=== PATIENT | female | born 1935 | race Caucasian/White ===

== ENCOUNTER 2018-04-08 07:27 | Observation (INO) | payer OTHER ==
[2018-04-08] MEDS ORDERED: FAMOTIDINE 20 MG TAB PO ONE (07:28)
[2018-04-08] MEDS ORDERED: DIAZEPAM 5 MG TAB PO ONE (07:28)
[2018-04-08] MEDS ORDERED: diphenhydrAMINE 25 MG CAP PO ONE (07:28)
[2018-04-08] MEDS ORDERED: ASPIRIN EC 325 MG TAB PO ONE (07:28)
[2018-04-08] MEDS ORDERED: NS 1,000 ML IV ONE (07:28)
[2018-04-08] MEDS ORDERED: FAMOTIDINE 20 MG/NACL 50 ML IV ONE (07:29)
[2018-04-08] MEDS ORDERED: methylPREDNISolone SOD SUCC 125 MG/2 ML VIAL IVP ONE (07:29)
[2018-04-08] MEDS ORDERED: fentaNYL 100 MCG/2 ML INJ ONE ×2 (08:15→09:42)
[2018-04-08] MEDS ORDERED: IOPAMIDOL (ISOVUE-370) 150 ML BTL IV ONE (08:15)
[2018-04-08] MEDS ORDERED: MIDAZOLAM 2 MG/2 ML VIAL ONE ×2 (08:15→09:42)
[2018-04-08] MEDS ORDERED: LIDOCAINE 1% 300 MG/30 ML SDV ONE (08:15)
[2018-04-08 08:18] LABS: PLATELET COUNT 247 10^3/uL (150-400)
[2018-04-08 08:33] LABS: INR 0.91 (0.83-1.16); PROTIME(PATIENT) 12.5 SEC (12.0-15.0)
[2018-04-08] MEDS ORDERED: CLOPIDOGREL BISULFATE 75 MG TAB ONE (08:33)
--- NOTE | 2018-04-08 08:35 | PDHPUP ---
History & Physical Update H&P update statement: This history and physical update is based on an assessment of the patient which was completed after admission or registration (within 24 hours), but prior to the surgery/procedure. H&P update: H&P reviewed & patient examined, no change in patient's condition since H&P completed
--- NOTE | 2018-04-08 08:36 | PDPROPOC ---
Sedation Plan of Care Sedation Plan of Care: mental status noted, patient educated of risks, benefits , alternatives, patient can tolerate sedation ASA Classification: ASA 2 Planned drugs: fentanyl, midazolam Mallampati Score: Class 3 Mallampati Reference Image: Patient passed 3-3-2 rule?: Yes
[2018-04-08] MEDS ORDERED: CLOPIDOGREL BISULFATE 75 MG TAB PO ONE (08:45)
[2018-04-08] MEDS ORDERED: BIVALIRUDIN 250 MG/5 ML VIAL IV ONE (09:18)
[2018-04-08] MEDS ORDERED: EPINEPHrine 1 MG/10 ML SYR IVP ONE (09:28)
[2018-04-08] MEDS ORDERED: ATROPINE SULFATE 1 MG/10 ML SYR ONE (09:28)
--- NOTE | 2018-04-08 09:54 | CPEKG ---
Test Reason : OPEN Blood Pressure : / mmHG Vent. Rate : 074 BPM Atrial Rate : 075 BPM P-R Int : 165 ms QRS Dur : 097 ms QT Int : 381 ms P-R-T Axes : 059 050 045 degrees QTc Int : 423 ms Sinus rhythm Confirmed by Anoop Oden ([id number]) on 04/08/2018 9:54:42 AM Referred By: Confirmed By:Anoop Oden
[2018-04-08] MEDS ORDERED: OXYCODONE/APAP 5/325 TAB PO PRN (09:59)
[2018-04-08] MEDS ORDERED: LORazepam 2 MG/ML INJ IVP PRN (09:59)
[2018-04-08] MEDS ORDERED: NITROGLYCERIN 0.4 MG BTL SL PRN (09:59)
[2018-04-08] MEDS ORDERED: HYDROCODONE/APAP 5/325 TAB PO PRN (09:59)
[2018-04-08] MEDS ORDERED: ONDANSETRON 4 MG/2 ML VIAL IVP PRN (09:59)
[2018-04-08] MEDS ORDERED: TEMAZEPAM 15 MG CAP PO PRN ×2 (09:59→12:11)
[2018-04-08] MEDS ORDERED: ATROPINE SULFATE 1 MG/10 ML SYR IVP PRN (09:59)
[2018-04-08] MEDS ORDERED: traMADol 50 MG TAB PO PRN (10:01)
--- NOTE | 2018-04-08 10:28 | ECHO ---
[email or web address] [address] [address] Main: [phone] Fax: Transthoracic Echocardiogram Name: SKYE NIETO MR#: [id number] Study Date: 04/08/2018 Study Time: 08:15 AM Date of : 1935 Age: 82 year(s) Height: 152.4 cm (60 in.) Weight: 80.74 kg (178 lb.) BSA: 1.78 m2 Gender: Female Examination: Echo Indication: Eval aortic valve/LV function Image Quality: Adequate Contrast: Requested by: Donnie Rae BP: 167 mmHg/96 mmHg Heart Rate: Rhythm: Indication: Eval aortic valve/LV function Procedure Staff Fundraising Officer: Elina Wu RDCS Reading Physician: Donnie Rae MD Requesting Provider: Conclusions: Mild concentric LV hypertrophy. The ejection fraction is estimated to be 60-65 %. AV max velocity was 3.91m/s. AV max PG is 58mmHG. AV mean PG is 40mmHG.. The pulmonary artery pressure is mildly increased. RVSP is 50mmHG. . Measurements: Chambers Valvular Assessment AV/MV Valvular Assessment TV/PV Normal Normal Normal Name Value Range Name Value Range Name Value Range IVSd (2D): 1.0 cm (0.6 cm-1.1 AV Vmax: 3.91 m/s (1 m/s-1.7 TR Vmax: 3.35 mm/s ( - ) cm) m/s) TR PGmax: 45 mmHg ( - ) LVDd (2D): 4.7 cm (3.9 cm-5.3 AV meanP mmHg ( - ) syst. PAP: 50 mmHg ( - ) cm) SANDY (VTI): 0.7 cm ( - ) LVDs (2D): 2.9 cm (2.1 cm-4 MV E Vmax: 1.03 m/s ( - ) cm) MV A Vmax: 1.02 m/s ( - ) LVPWd (2D): 0.8 cm ( - ) MV E/A: 1.01 ( - ) LVOTd 1.9 cm 1.9 cm mm LVEF (BP): 71 % (>=55 %) EF Range: 60-65 % Continued Measurements: Chambers Valvular Assessment AV/MV Valvular Assessment TV/PV Name Value Name Value Name Value LADs: 4.3 cm MV E' Septal: 0.06 m/s CVP (est.): 5 mmHg LADs Lon.0 cm MV E/E' Septal: 17.30 LA Area: 23.5 cm2 MV E/E' Lateral: 13.60 Patient: SKYE NIETO Study Date: 04/08/2018 Page 1 of 2 08:15 AM Findings: Left Ventricle: Normal size left ventricle. Mild concentric LV hypertrophy. Normal global systolic LV function. The ejection fraction is estimated to be 60-65 %. No regional wall motion abnormality. Diastolic dysfunction is present. . Right Ventricle: Normal size right ventricle. Left Atrium: The left atrium is mildly dilated. Right Atrium: The right atrium is normal in size. Mitral Valve: Mild mitral annular calcification. Mild mitral valve regurgitation is present. Aortic Valve: Severe aortic valve calcification is present. AV max velocity was 3.91m/s. AV max PG is 58mmHG. AV mean PG is 40mmHG.. Tricuspid Valve: The tricuspid valve is normal in appearance and function. Mild tricuspid regurgitation is present. The pulmonary artery pressure is mildly increased. RVSP is 50mmHG. . Pulmonic Valve: The pulmonic valve is normal in appearance and function. Aorta: The aorta is normal. Pericardium: No pericardial effusion. There is pericardial fat. (No Signature Object) Patient: SKYE NIETO Study Date: 04/08/2018 Page 2 of 2 08:15 AM [id number]
--- NOTE | 2018-04-08 11:20 | CPIP ---
DATE OF PROCEDURE: 04/08/2018 INDICATION FOR PROCEDURE: Severe symptomatic aortic stenosis. PROCEDURE: 1. Left groin sheathogram. 2. 7-Albanian sheath in the left common femoral vein. 3. Bilateral coronary angiography. 4. Left internal mammary artery angiography. 5. Free radial artery angiography to diagonal artery. 6. Percutaneous coronary intervention of distal RCA and ostial RPDA utilizing drug-eluting stent. 7. Right heart catheterization with Pender-Naomie catheter. 8. Abdominal aortogram. HISTORY: Briefly, 82-year-old female with history of prior bypass surgery with severe symptomatic ao rtic stenosis, seen by CT surgery and deemed to be a suitable candidate for transfemoral TAVR. DESCRIPTION OF PROCEDURE: After informed consent, the patient was brought to [facility] where the left groi n was prepped and draped in sterile fashion. Using lidocaine, a short 6-Albanian sheath in the left co mmon femoral artery verified angiographically. 7-Albanian sheath in the left common femoral vein. A S wan-Naomie catheter was advanced. Wedge pressure mean of 17, A-wave of 20, V-wave of 21. PA pressure systolic 55, diastolic 19, mean of 33. RV pressure systolic 55, diastolic 6, end of 11. RA pressure mean of 14 , A-wave 9, V-wave 29. Cardiac output was measured to be 4.1 by Logan with an index of 2.3 . Pender-Naomie catheter was then removed. A JL4 catheter was advanced to the left coronary artery. Images of the left coronary artery revealed normal left main with mild plaque disease. There was a high OM1 coming off, which was healthy and f ree of disease. There was a circumflex artery with mild 20% to 30% disease. There was a stent in th e OM2, which was widely patent. The circumflex terminated into an AV groove circumflex, which was he althy and free of disease. The LAD was a diffusely diseased vessel, which was completely occluded at its mid distal portion. Before its occlusion, there were small diagonal arteries coming off, which had diffuse disease. After these images were obtained, the JL4 catheter was removed. The JR4 cathet er was advanced to the right coronary artery. Right coronary artery imaging showed ostial 30% diseas e with good reflux. Proximal RCA had an additional area of 30% disease. Mid RCA had a distal 30% di sease. Distal RCA had focal tubular area of approximately 70%. The RPLS appeared to be widely paten t. The RPDA had a tubular stenosis of approximately 90%. Distally, these vessels appeared to be pat ent. After these were images obtained, the JR4 catheter was removed, pulled back, and placed into the [facility], which was a free radial graft anastomosed to a diagonal artery. This was widely patent. Di stal diagonal artery was widely patent as well. After the images were obtained, the JR4 catheter was placed in the left artery, switched o ut for a MOREAU catheter. Angiography of the left internal mammary showed widely patent MOREAU anastomos ing to an LAD, which was healthy at its anastomotic point and distally had some 40% to 50% disease at the extreme distal apical segment. At this time, the MOREAU catheter was removed. The pigtail catheter was advanced to the distal ascendi ng aorta. Abdominal aortogram was obtained, which showed what appeared to be an abdominal aortic ane urysm. There were widely patent common, external, internal iliac arteries. The right RAIL SWITCHMAN appeared t o be widely patent. After these images obtained, the pigtail catheter was removed over the 0.035 wire. INTERVENTIONAL REPORT: At this time, the patient had been administered 600 Plavix p.o., started on a n Angiomax bolus and drip. A JR4 6-Albanian guide catheter with side holes was advanced the right felipe nary artery. A Choice PT wire was placed down the RPDA. Predilatation commenced across the RPDA les ion with a Euphora 2.0 x 12 balloon at 14 atmospheres. After this was performed, we then proceeded w [facility] angiography, which showed that this lesion had responded to the ballooning, but it still had some waste. We decided to proceed with a 2.5 x 12 Compliant balloon and inflated this to 14 atmospheres across the area. After it was deflated, the balloon was removed. We then proceeded with stenting th is vessel with a Synergy 2.5 x 12 mm drug-eluting stent. This was deployed successfully at 16 atmosp heres. After deployment, angiographic images were obtained, which showed excellent patency of both t he RPD and RPLS with no pinching of the RPLS. We then proceeded to proceed with primary stenting of the distal RCA lesion with a 3.0 x 20 mm Synergy drug-eluting stent. This was deployed at 16 atmosph eres. After this was performed, angiographic images were obtained, which showed excellent patency of the stented regions with no evidence of dissection or perforation. Wire was pulled back. Guide cat heter was removed. Left groin was sutured in place. Patient tolerated the procedure well with no co mplications. IMPRESSION: 1. Successful percutaneous coronary intervention of high-grade right posterior descending artery and distal right coronary artery lesions with 2 Synergy drug-eluting stents. 2. Severe disease of the left coronary artery system with patent stents in the obtuse marginal-2 art thiago. 3. Patent radial graft to the diagonal artery. 4. Patent left internal mammary artery to left anterior descending. 5. Abdominal aortic aneurysm visualized by abdominal angiogram with widely patent common, external, internal and common femoral arteries bilaterally. 6. Moderate pulmonary hypertension with low-normal cardiac output. PLAN: The patient will have CT of the chest, abdomen, and pelvis, as well as carotid ultrasound. Di scharge the patient in 24 hours. Plan for TAVR in the next week or so. /[id number]/MODL
[2018-04-08] MEDS ORDERED: hydrALAZINE 20 MG/ML VIAL ONE (12:02)
[2018-04-08] MEDS ORDERED: hydrALAZINE 20 MG/ML VIAL IVP PRN (12:07)
--- NOTE | 2018-04-08 23:05 | CPEKG ---
Test Reason : OPEN Blood Pressure : / mmHG Vent. Rate : 068 BPM Atrial Rate : 069 BPM P-R Int : 186 ms QRS Dur : 108 ms QT Int : 415 ms P-R-T Axes : 066 060 072 degrees QTc Int : 442 ms Sinus rhythm Left ventricular hypertrophy Confirmed by Anoop Oden ([id number]) on 04/08/2018 11:04:34 PM Referred By: Confirmed By:Anoop Oden
[2018-04-09 04:33] LABS: PLATELET COUNT 236 10^3/uL (150-400)
[2018-04-09] MEDS ORDERED: LEVOTHYROXINE 75 MCG TAB PO SCH (06:00)
[2018-04-09] MEDS ORDERED: methylPREDNISolone SOD SUCC 125 MG/2 ML VIAL IVP ONE (07:07)
[2018-04-09] MEDS ORDERED: FAMOTIDINE 20 MG/NACL 50 ML IV ONE (07:07)
--- NOTE | 2018-04-09 07:10 | PDCARPN ---
Cardiology Progress Note Chief Complaint: SOB Assessment/Plan: Assessment: CAD Plan: 04/09/18 07:07 s/p RCA PCI Plan for CTAs this AM d/c home after f/u next week TAVR soon thereafter plavix to be started as well Subjective: doing well Reviewed/Discussed With: multidisciplinary team Time Spent with Patient: greater than 25 minutes Time Spent with Patient: Greater than 25 minutes spent on this patients care, greater than 50% of time spent counseling, educating, and coordinating care regarding the above mentioned plan. Objective: Vital Signs (8 Hrs) Temp Pulse Resp BP Pulse Ox 04/09/18 04:00 36.5 C 66 19 145/69 H 95 04/08/18 23:26 36.4 C 64 20 154/80 H 93 Intake/Output (24 Hrs) 04/08/18 04/09/18 04/10/18 05:59 05:59 05:59 Intake Total 750 Balance 750 Intake: Oral (ml) 750 Other: Weight 80.739 kg Number of Voids Toilet 3 Result Diagrams: 04/09/18 04:10 04/09/18 04:10 - Physical Exam Constitutional: healthy appearing Eyes: PERRL Ears, Nose, Mouth, Throat: moist mucous membranes Cardiovascular: regular rate and rhythm Peripheral Pulses: 1+: femoral (R), femoral (L) Respiratory: clear to auscultate bilat Gastrointestinal: normoactive bowel sounds Genitourinary: no suprapubic tenderness Skin: no rashes Musculoskeletal: no muscular tenderness Neurologic: AAOx3 Psychiatric: cooperative ICD10 Worksheet Patient Problems: Problems Problem Status Onset Aortic stenosis Acute CAD (coronary artery disease), [place] coronary artery Acute - ICD10 Problem Qualifiers (1) Aortic stenosis Qualifiers: Cardiac valve disease etiology: nonrheumatic Qualified Code(s): I35.0 - Nonrheumatic aortic (valve) stenosis (2) CAD (coronary artery disease), [place] coronary artery Qualifiers: [place] vs. transplanted heart: [place] heart Associated angina: with other forms of angina Qualified Code(s): I25.118 - Atherosclerotic heart disease of [place] coronary artery with other forms of angina pectoris
--- NOTE | 2018-04-09 07:28 | GDS ---
DISCHARGE DIAGNOSIS: Aortic stenosis, coronary artery disease. BRIEFLY: This is an 82-year-old female with a history of CABG with worsening shortness of breath, wa s found as an outpatient to have severe aortic stenosis. Given these findings, patient consented for right and left heart catheterization. She had seen CT surgery who deemed her to be a high-risk cand idate for open AVR. Thus, she was being evaluated for TAVR. The patient underwent right and left he art catheterization, which showed moderate pulmonary hypertension, as well as high-grade lesions in t he right coronary artery, which was successfully treated with PCI. Her 2 other bypass grafts were wi jocelyn patent. The patient overnight has done well with no issues. This morning the patient will be g etting her CTs of chest, abdomen, and pelvis, as part of her TAVR workup. She will be discharged perry e after her CTs are done with baby aspirin and Plavix, as well as her home medications. She will fol low up in the office in 1 week's time. /[id number]/MODL
[2018-04-09 07:34] VITALS: BP 146/66
[2018-04-09] MEDS ORDERED: IOPAMIDOL (ISOVUE-370) 150 ML BTL IV ONE (08:57)
[2018-04-09] MEDS ORDERED: IRBESARTAN 150 MG TAB PO SCH (09:00)
[2018-04-09] MEDS ORDERED: OMEGA-3 FATTY ACIDS 1,000 MG CAP PO SCH (09:00)
[2018-04-09] MEDS ORDERED: MULTIVITAMINS 1 EACH TAB PO SCH (09:00)
[2018-04-09] MEDS ORDERED: amLODIPine BESYLATE 5 MG TAB PO SCH (09:00)
[2018-04-09] MEDS ORDERED: CLOPIDOGREL BISULFATE 75 MG TAB PO SCH (09:00)
[2018-04-09] MEDS ORDERED: CALCIUM CARB W/VIT D 500 MG TAB PO SCH (09:00)
[2018-04-09] MEDS ORDERED: ASPIRIN 81 MG CHEWABLE TAB PO SCH (09:00)
== END 2018-04-09 11:18 | disposition home or self-care (01) ==
LOC: FCATH 07:27 → F2W 09:59
PROVIDERS: ADMIT Internal Medicine Cardiovascular Disease; ATTEND Internal Medicine Cardiovascular Disease
PROC: 4A023N8 Measurement of Cardiac Sampling and Pressure, Bilateral, Percutaneous Approach (ICD-10-PCS; principal; 2018-04-08)
PROC: B4101ZZ Fluoroscopy of Abdominal Aorta using Low Osmolar Contrast (ICD-10-PCS; principal; 2018-04-08)
PROC: B2181ZZ Fluoroscopy of Left Internal Mammary Bypass Graft using Low Osmolar Contrast (ICD-10-PCS; principal; 2018-04-08)
PROC: 027035Z Dilation of Coronary Artery, One Artery with Two Drug-eluting Intraluminal Devices, Percutaneous Approach (ICD-10-PCS; principal; 2018-04-08)
PROC: B2111ZZ Fluoroscopy of Multiple Coronary Arteries using Low Osmolar Contrast (ICD-10-PCS; principal; 2018-04-08)
DX: I70.0 Atherosclerosis of aorta (principal); I25.10 Atherosclerotic heart disease of native coronary artery without angina pectoris; I71.4 Abdominal aortic aneurysm, without rupture; I27.20 Pulmonary hypertension, unspecified; E78.5 Hyperlipidemia, unspecified; I10 Essential (primary) hypertension; E03.9 Hypothyroidism, unspecified; G47.33 Obstructive sleep apnea (adult) (pediatric); Z91.81 History of falling; Z95.1 Presence of aortocoronary bypass graft
CPT/HCPCS: 71275; 74174; 93005; 93306; 93457; 93880; C1725; C1769; C1874; C1887; C9600; J0360; J0583; J1200; J1644; J2250; J2930; J3010; Q9967; J0461

== ENCOUNTER 2018-04-20 07:33 | Inpatient (IN) | payer OTHER ==
[2018-04-20] MEDS ORDERED: ceFAZolin 2 GM/DEXTROSE 100 ML IV ONE (07:36)
[2018-04-20] MEDS ORDERED: NS 1,000 ML IV ONE (07:36)
[2018-04-20] MEDS ORDERED: methylPREDNISolone SOD SUCC 125 MG/2 ML VIAL IVP ONE (07:52)
[2018-04-20] MEDS ORDERED: FAMOTIDINE 20 MG/NACL 50 ML IV ONE (07:52)
[2018-04-20] MEDS ORDERED: LIDOCAINE 1% 300 MG/30 ML SDV ONE (09:10)
[2018-04-20] MEDS ORDERED: IOPAMIDOL (ISOVUE-370) 150 ML BTL IV ONE (09:10)
[2018-04-20] MEDS ORDERED: PROTAMINE SULFATE 50 MG/5 ML VIAL IVP ONE (09:11)
--- NOTE | 2018-04-20 10:10 | PDPROPOC ---
Sedation Plan of Care Sedation Plan of Care: mental status noted, patient educated of risks, benefits , alternatives, patient can tolerate sedation ASA Classification: ASA 3 Planned drugs: other Mallampati Score: Class 3 Mallampati Reference Image: Patient passed 3-3-2 rule?: Yes
--- NOTE | 2018-04-20 10:22 | PDANEPAE ---
ANE History of Present Illness 82 yo for tavr ANE Past Medical History - Cardiovascular History Hx Hypertension: Yes Hx Arrhythmias: Yes Hx Coronary Artery / Peripheral Vascular Disease: Yes Hx CHF / Valvular Disease: Yes - Pulmonary History Hx COPD: No Hx Asthma/Reactive Airway Disease: No Hx Recent Upper Respiratory Infection: No Hx Oxygen in Use at Home: No Hx Sleep Apnea: Yes ANE Review of Systems Review of Systems: - Exercise capacity METS (RN): 3 METS ANE Patient History - Allergies Allergies/Adverse Reactions: cephalexin [From Keflex] Allergy (Intermediate, Verified 04/03/18 10:51) Hives clopidogrel [From Plavix] Allergy (Intermediate, Verified 04/20/18 09:09) Iodinated Contrast- Oral and IV Dye Allergy (Intermediate, Verified 04/13/18 13: 56) Hypotension/Hives naproxen Allergy (Intermediate, Verified 04/13/18 13:56) Hives nifedipine Allergy (Intermediate, Verified 04/03/18 10:51) Hives Mjmcjpx-Kgq-Nbw Reductase Inhibitor Allergy (Intermediate, Verified 04/03/18 10: 51) Other-Enter Comments Sulfa (Sulfonamide Antibiotics) Allergy (Intermediate, Verified 04/13/18 13:57) Hives/Tachycardia - Home Medications Home Medications: Aspirin EC [Aspirin EC 81 mg (*)] 81 mg PO DAILY 04/03/18 [Last Taken 1 Day Ago ~04/19/18] Calcium Carb W/Vit D [Calcium Carb W/Vit D 500/200 (*)] 500 mg PO DAILY [Last Taken 1 Day Ago ~04/19/18] Irbesartan [Avapro 150 mg (*)] 150 mg PO DAILY 04/03/18 [Last Taken 04/03/18] Levothyroxine [Synthroid 75 mcg (*)] 75 mcg PO DAILY06 04/03/18 [Last Taken 1 Day Ago ~04/19/18] Multivitamins [Multivitamin (*)] 1 each PO DAILY 04/03/18 [Last Taken 1 Day Ago ~04/19/18] Nitroglycerin [Nitrostat 0.4 mg (*)] 0.4 mg SL Q5M PRN 04/03/18 [Last Taken Unknown] [place]-3 Fatty Acids [Fish Oil 1000 mg (*)] 2,000 mg PO DAILY 04/03/18 [Last Taken 04/19/18] Temazepam 30 mg PO HS PRN 04/03/18 [Last Taken 04/19/18] amLODIPine BESYLATE [Amlodipine Besylate] 5 mg PO DAILY 04/03/18 [Last Taken 1 Day Ago ~04/19/18] traMADol [Ultram 50 mg (*)] 50 mg PO DAILY PRN 04/03/18 [Last Taken 04/19/18] Prasugrel HCl [Effient 10mg (*)] 10 mg PO DAILY 04/20/18 [Last Taken 04/20/18] - NPO status NPO Status: no food or drink >8 hours - Smoking Hx Smoking Status: Never smoked ANE Labs/Vital Signs - Vital Signs Height: 5 ft Weight: 77.111 kg ANE Physical Exam - Airway Neck exam: FROM Mallampati Score: Class 2 Mouth exam: normal dental/mouth exam - Pulmonary Pulmonary: no respiratory distress - Cardiovascular Cardiovascular: regular rate and rhythym - ASA Status ASA Status: III ANE Anesthesia Plan Anesthesia Plan: MAC Lines/Monitors: central line
[2018-04-20] MEDS ORDERED: PROPOFOL/EMULSION 500 MG/50 ML BOTTLE IV ONE (10:29)
[2018-04-20] MEDS ORDERED: fentaNYL 100 MCG/2 ML INJ ONE (10:29)
[2018-04-20] MEDS ORDERED: HEPARIN 10,000 UNIT/10 ML MDV (1,000 UNIT/ML) ONE (11:09)
[2018-04-20] MEDS ORDERED: PROPOFOL 200 MG/20 ML VIAL ONE (11:41)
[2018-04-20] MEDS ORDERED: NALOXONE HCL 0.4 MG/ML INJ IVP PRN (12:03)
[2018-04-20] MEDS ORDERED: ONDANSETRON 4 MG/2 ML VIAL IVP PRN (12:07)
[2018-04-20] MEDS ORDERED: ONDANSETRON DISINTEGRATING 4 MG TAB PO PRN (12:07)
[2018-04-20] MEDS ORDERED: IBUPROFEN 800 MG TAB PO PRN (12:07)
[2018-04-20] MEDS ORDERED: oxyCODONE IR 5 MG TAB PO PRN (12:07)
[2018-04-20] MEDS ORDERED: HYDROmorphONE/DILAUDID 1 MG/ML INJ IVP PRN (12:07)
[2018-04-20] MEDS ORDERED: hydrALAZINE 20 MG/ML VIAL IVP PRN (12:07)
[2018-04-20] MEDS ORDERED: ATROPINE SULFATE 1 MG/10 ML SYR IVP PRN (12:07)
[2018-04-20] MEDS ORDERED: NITROGLYCERIN 0.4 MG BTL SL PRN (12:09)
[2018-04-20] MEDS ORDERED: traMADol 50 MG TAB PO PRN (12:09)
--- NOTE | 2018-04-20 12:53 | CPIP ---
DATE OF PROCEDURE: 04/20/2018 INDICATION FOR PROCEDURE: Severe symptomatic aortic stenosis. CO-SURGEONS: Dr. Danny Naranjo MD, Dr. Dina Moe, Dr. Symone Savage. PROCEDURES: 1. Nonselective left groin sheathogram. 2. Nonselectgive right groin sheathogram, upsized to 16-Northern Irish sheath with double Perclose placement s. 3. Placement of Medtronic CoreValve Evolut PRO 29 mm valve by the transfemoral route. HISTORY: Briefly, this is an 82-year-old female with history of severe symptomatic aortic stenosis s een by CT Surgery, and deemed to be a suitable candidate for transfemoral TAVR. DESCRIPTION OF PROCEDURE: After informed consent, the patient was brought to [facility], where the patient was placed under anesthesia. Patient was administered antibiotics prior to the case. An 8-Northern Irish sheath placed in the left common artery verified angiographically. This was revea led to be a high bifurcation and into the proximal profunda artery going to the WAX BLEACHER. The right side, a 6-Northern Irish sheath was placed into the right common femoral artery proper. 6-Northern Irish sheath was upsiz ed with double Perclose placements, up to a 16-[place] Irish sheath. The patient was administered measured 9000 heparin IV. The valve was crossed with AL1 catheter straight stiff Glidewire, switched out for a pigtail catheter, switched out for a Confida wire. We then proceeded with placement of a Medtronic CoreValve Evolut PRO 29 mm valve via the transfemoral route. This was then deployed successfully wi th a pacing rate of 120 beats per minute. After deployment, there was no perivalvular leak noted by echocardiogram. The patient's ejection fraction was normal. The wire was pulled back. The pigtail catheter was removed. The right groin was closed with a bilateral Perclose, as well as an 8-Northern Irish A ngio-Seal. Left groin was sutured in place. The patient tolerated the procedure well. No complicat ions. IMPRESSION: Successful placement of Medtronic CoreValve Evolut PRO 29 mm valve by the transfemoral r oute. PLAN: The patient will be admitted to . Further orders following clinical course. /[id number]/MODL
[2018-04-20] MEDS ORDERED: HYDROmorphONE/DILAUDID 2 MG/ML INJ ONE (13:24)
--- NOTE | 2018-04-20 13:46 | ECHO ---
[email or web address] [address] [address] Main: [phone] Fax: Transthoracic Echocardiogram Name: KIERA NIETO MR#: [id number] Study Date: 04/20/2018 Study Time: 09:49 AM Date of : 1935 Age: 82 year(s) Height: ( ) Weight: ( ) BSA: Gender: Female Examination: Limited Echo Indication: TAVR Procedure Image Quality: Adequate Contrast: Requested by: Donnie Rae BP: / Heart Rate: Rhythm: Indication: TAVR Procedure Procedure Staff Computer Technologist: Marianna Gonzalez RDCS Reading Physician: Dina Moe MD Requesting Provider: Conclusions: Normal global systolic LV function. EF is 55 %. No regional wall motion abnormality. Mild mitral valve regurgitation is present. Prior to the TAVR procedure, the aortic valve peak velocity was 3.91 m/s. The mean gradient was 40 mmhg and the SANDY .87. Post TAVR, the aortic valve peak velocity is 2.06 m/s. The mean gradient is 9 mmhg and SANDY 1.7. There is no perivalvular leak. Mild to moderate tricuspid valve regurgitation. Post TAVR placement, the pulmonary artery pressure measures 67 mmhg. No pericardial effusion. successful implantation of a #29 Medtronic Pro TAVR Measurements: Chambers Valvular Assessment AV/MV Valvular Assessment TV/PV Normal Normal Normal Name Value Range Name Value Range Name Value Range LVOTd 2.2 cm 2.2 cm mm AV Vmax: 2.06 m/s (1 m/s-1.7 TR Vmax: 3.31 mm/s ( - ) LVEF (BP): 55 % (>=55 %) m/s) TR PGmax: 44 mmHg ( - ) AV maxP mmHg ( - ) syst. PAP: 49 mmHg ( - ) AV meanP mmHg ( - ) SANDY (VTI): 1.7 cm ( - ) Continued Measurements: Valvular Assessment TV/PV Name Value CVP (est.): 5 mmHg Patient: KIERA NIETO Study Date: 04/20/2018 Page 1 of 2 09:49 AM Findings: Left Ventricle: Normal size left ventricle. Normal global systolic LV function. EF is 55 %. No regional wall motion abnormality. Right Ventricle: Normal size right ventricle. Normal RV function. Mitral Valve: The mitral valve is normal in appearance and function. Mild mitral valve regurgitation is present. No mitral stenosis is present. Aortic Valve: Prior to the TAVR procedure, the aortic valve peak velocity was 3.91 m/s. The mean gradient was 40 mmhg and the SANDY .87. Post TAVR, the aortic valve peak velocity is 2.06 m/s. The mean gradient is 9 mmhg and SANDY 1.7. There is no perivalvular leak. Tricuspid Valve: Mild to moderate tricuspid valve regurgitation. Post TAVR placement, the pulmonary artery pressure measures 67 mmhg. Pericardium: No pericardial effusion. (No Signature Object) Patient: KIERA NIETO Study Date: 04/20/2018 Page 2 of 2 09:49 AM [id number]
--- NOTE | 2018-04-20 14:57 | POSTANESTH ---
Post Anesthetic Evaluation Cardiovascular Status: Normal, Stable Respiratory Status: Normal, Stable Level of Consciousness/Mental Status: Can Participate in Eval Pain Control: Adequate, Prn Tx Ordered Nausea/Vomiting Control: Adequate, Prn Tx Ordered Complications Possibly Related to Anesthesia: None Noted
--- NOTE | 2018-04-20 15:22 | PDMN ---
Medical Necessity Medical necessity: 82 yo s/p TAVR, [facility] S1320, Aortic Valve Replacement, Transcatheter, [facility] only
[2018-04-20] MEDS: PRASUGREL HCL 10 MG TAB PO SCH (17:32)
[2018-04-20] MEDS: ACETAMINOPHEN 325 MG TAB PO SCH (17:32)
[2018-04-20] MEDS: TEMAZEPAM 15 MG CAP PO PRN (21:54)
[2018-04-21] MEDS: ACETAMINOPHEN 325 MG TAB PO SCH ×4 (01:37→22:14)
[2018-04-21] MEDS ORDERED: methylPREDNISolone SOD SUCC 125 MG/2 ML VIAL IVP ONE (02:00)
[2018-04-21] MEDS: LEVOTHYROXINE 75 MCG TAB PO SCH (04:08)
[2018-04-21 04:45] LABS: PLATELET COUNT 201 10^3/uL (150-400)
--- NOTE | 2018-04-21 06:53 | PDCARPN ---
Cardiology Progress Note Chief Complaint: SOB Assessment/Plan: Assessment: s/p TAVR rash Plan: 04/21/18 06:52 doing well from CV standpoint rash on chest/arm--most likely from contrast steroids given last night-improvement seen OOB check echo Subjective: c/o rash Reviewed/Discussed With: multidisciplinary team Time Spent with Patient: greater than 25 minutes Time Spent with Patient: Greater than 25 minutes spent on this patients care, greater than 50% of time spent counseling, educating, and coordinating care regarding the above mentioned plan. Objective: Vital Signs (8 Hrs) Temp Pulse Resp BP Pulse Ox 04/21/18 05:23 155/63 H 04/21/18 04:00 36.7 C 67 16 171/69 H 94 04/20/18 23:52 36.7 C 59 L 18 129/53 H 94 Intake/Output (24 Hrs) 04/20/18 04/21/18 04/22/18 05:59 05:59 05:59 Intake Total 1750 Output Total 300 Balance 1450 Intake: Oral (ml) 1750 IV Intake (ml) 0 Output: Urine (ml) 300 Toilet 300 Other: Weight 77.111 kg Number of Voids Toilet 4 Result Diagrams: 04/21/18 04:04 04/21/18 04:04 - Physical Exam Constitutional: no apparent distress Eyes: PERRL Ears, Nose, Mouth, Throat: moist mucous membranes Cardiovascular: regular rate and rhythm Peripheral Pulses: 1+: femoral (R), femoral (L) Respiratory: clear to auscultate bilat Gastrointestinal: normoactive bowel sounds Genitourinary: no suprapubic tenderness Skin: rash Musculoskeletal: no muscular tenderness Neurologic: AAOx3 Psychiatric: cooperative ICD10 Worksheet Patient Problems: Problems Problem Status Onset Aortic stenosis Acute CAD (coronary artery disease), [place] coronary artery Acute
[2018-04-21] MEDS ORDERED: PRASUGREL HCL 10 MG TAB PO SCH (09:00)
[2018-04-21] MEDS: IRBESARTAN 150 MG TAB PO SCH (10:03)
[2018-04-21] MEDS: amLODIPine BESYLATE 5 MG TAB PO SCH (10:03)
[2018-04-21] MEDS: PRASUGREL HCL 10 MG TAB PO SCH (10:04)
[2018-04-21] MEDS: OMEGA-3 FATTY ACIDS 1,000 MG CAP PO SCH (10:04)
[2018-04-21] MEDS: MULTIVITAMINS 1 EACH TAB PO SCH (10:04)
[2018-04-21] MEDS: CALCIUM CARB W/VIT D 500 MG TAB PO SCH (10:04)
--- NOTE | 2018-04-21 12:10 | ECHO ---
[email or web address] [address] [address] Main: [phone] Fax: Transthoracic Echocardiogram Name: KIERA NIETO MR#: [id number] Study Date: 04/21/2018 Study Time: 10:10 AM Date of : 1935 Age: 82 year(s) Height: 152.4 cm (60 in.) Weight: 77.11 kg (170 lb.) BSA: 1.74 m2 Gender: Female Examination: Echo Indication: Post TAVR Image Quality: Good Contrast: Requested by: Donnie Rae BP: / Heart Rate: Rhythm: Indication: Post TAVR Procedure Staff Package Line Operator: Elina Wu RDCS Reading Physician: Dina Moe MD Requesting Provider: Conclusions: Normal size left ventricle. Normal global systolic LV function. The ejection fraction is estimated to be 65-70 %. No regional wall motion abnormality. The left atrium is severely dilated. The right atrium is mildly dilated. #29 Medtronic Cor valve in place. No perivalvular leak visualized. AV max PG is 19mmHG. AV mean PG is 10mmHG.. Mild tricuspid regurgitation is present. Measurements: Chambers Valvular Assessment AV/MV Valvular Assessment TV/PV Normal Normal Normal Name Value Range Name Value Range Name Value Range IVSd (2D): 0.9 cm (0.6 cm-1.1 AV meanP mmHg ( - ) cm) SANDY (VTI): 2.2 cm ( - ) LVDd (2D): 4.8 cm (3.9 cm-5.3 cm) LVDs (2D): 3.0 cm (2.1 cm-4 cm) LVPWd (2D): 1.0 cm ( - ) LVOTd 2.1 cm 2.1 cm mm LVEF (BP): 75 % (>=55 %) EF Range: 65-70 % Continued Measurements: Chambers Name Value Patient: KIERA NIETO Study Date: 04/21/2018 Page 1 of 2 10:10 AM LADs: 4.6 cm LADs Lon.0 cm LA Area: 25.2 cm2 LA Volume: 86 ml LA Volume Index: 49.4 ml/m2 Findings: Left Ventricle: Normal size left ventricle. No LV hypertrophy. Normal global systolic LV function. The ejection fraction is estimated to be 65-70 %. No regional wall motion abnormality. Right Ventricle: Normal size right ventricle. Left Atrium: The left atrium is severely dilated. Right Atrium: The right atrium is mildly dilated. Mitral Valve: The mitral valve is normal in appearance and function. Mild mitral valve regurgitation is present. Aortic Valve: #[address] valve [address]. No perivalvular leak visualized. AV max PG is 19mmHG. AV mean PG is 10mmHG.. Tricuspid Valve: The tricuspid valve is normal in appearance and function. Mild tricuspid regurgitation is present. Pulmonic Valve: The pulmonic valve is normal in appearance and function. Trivial pulmonic valve regurgitation. Aorta: The aorta is normal. Pericardium: No pericardial effusion. There is pericardial fat. (No Signature Object) Patient: KIERA NIETO Study Date: 04/21/2018 Page 2 of 2 10:10 AM [id number]
--- NOTE | 2018-04-21 13:50 | ASMTCMCOM ---
CM Note CM Note Notes: Pt is s/p TAVR. No Case Management needs identified at this time. Case Management available should needs arise. Plan: Anticipate Independent. Date Signed: 04/21/2018 01:49 PM Electronically Signed By:Sunshine Beltran RN
--- NOTE | 2018-04-21 16:41 | CPEKG ---
Test Reason : OPEN Blood Pressure : / mmHG Vent. Rate : 063 BPM Atrial Rate : 063 BPM P-R Int : 149 ms QRS Dur : 136 ms QT Int : 438 ms P-R-T Axes : 005 014 151 degrees QTc Int : 449 ms Sinus rhythm Left bundle branch block Confirmed by John Mo ([id number]) on 04/21/2018 4:41:09 PM Referred By: Donnie Rae Confirmed By:John Mo
[2018-04-21] MEDS: TEMAZEPAM 15 MG CAP PO PRN (22:15)
[2018-04-22] MEDS: ACETAMINOPHEN 325 MG TAB PO SCH ×2 (04:04→07:35)
[2018-04-22 04:50] LABS: PLATELET COUNT 175 10^3/uL (150-400)
[2018-04-22] MEDS: LEVOTHYROXINE 75 MCG TAB PO SCH (07:39)
--- NOTE | 2018-04-22 08:02 | PDCARPN ---
Cardiology Progress Note Chief Complaint: SOB Assessment/Plan: Assessment: s/p TAVR rash Plan: 04/21/18 06:52 doing well from CV standpoint rash on chest/arm--most likely from contrast steroids given last night-improvement seen OOB check echo 04/22/18 08:01 doing well no SOB labs stable echo- NL EF, TAVR d/c home f/u next week Subjective: doing well Reviewed/Discussed With: multidisciplinary team Time Spent with Patient: greater than 25 minutes Time Spent with Patient: Greater than 25 minutes spent on this patients care, greater than 50% of time spent counseling, educating, and coordinating care regarding the above mentioned plan. Objective: Vital Signs (8 Hrs) Temp Pulse Resp BP Pulse Ox 04/22/18 04:00 36.5 C 59 L 18 153/62 H 94 Intake/Output (24 Hrs) 04/21/18 04/22/18 04/23/18 05:59 05:59 05:59 Intake Total 1750 1150 Output Total 300 1300 Balance 1450 -150 Intake: Oral (ml) 1750 1150 IV Intake (ml) 0 Output: Urine (ml) 300 1300 Toilet 300 1300 Other: Weight 77.111 kg Number of Voids Toilet 4 3 Result Diagrams: 04/22/18 04:03 04/22/18 04:03 - Physical Exam Constitutional: healthy appearing Eyes: PERRL Ears, Nose, Mouth, Throat: moist mucous membranes Cardiovascular: regular rate and rhythm Peripheral Pulses: 1+: femoral (R), femoral (L) Respiratory: clear to auscultate bilat Gastrointestinal: normoactive bowel sounds Genitourinary: no suprapubic tenderness Skin: no rashes, no abrasions Musculoskeletal: no muscular tenderness Neurologic: CN II-XII grossly intact Psychiatric: cooperative ICD10 Worksheet Patient Problems: Problems Problem Status Onset Aortic stenosis Acute CAD (coronary artery disease), [place] coronary artery Acute
[2018-04-22 08:15] VITALS: BP 154/73
--- NOTE | 2018-04-22 08:20 | GDS ---
[f rep st] DISCHARGE SUMMARY DISCHARGE DIAGNOSIS: Transcatheter Aortic Valve Replacement. HOSPITAL COURSE: Briefly, this is an 82-year-old female with history of severe symptomatic aortic st enosis, who was deemed suitable for TAVR by CT surgery. The patient underwent successful transfemora l TAVR with Medtronic CoreValve Evolut PRO. The patient did very well post procedure. Echocardiogra m 24 hours post procedure showed normal ventricular function with normal TAVR function. The patient has been ambulating in the halls without problems. She did have a rash postprocedure secondary to co ntrast. She was treated with IV dose of steroids, which has resolved the rash. The patient will be discharged home this morning with her home medications including Effient 10 mg p.o. daily. She will follow up in the office in 1 week's time. /[id number]/MODL
[2018-04-22] MEDS: IRBESARTAN 150 MG TAB PO SCH (09:22)
[2018-04-22] MEDS: CALCIUM CARB W/VIT D 500 MG TAB PO SCH (09:23)
[2018-04-22] MEDS: MULTIVITAMINS 1 EACH TAB PO SCH (09:23)
[2018-04-22] MEDS: OMEGA-3 FATTY ACIDS 1,000 MG CAP PO SCH (09:23)
[2018-04-22] MEDS: PRASUGREL HCL 10 MG TAB PO SCH (09:23)
[2018-04-22] MEDS: amLODIPine BESYLATE 5 MG TAB PO SCH (09:23)
== END 2018-04-22 12:15 | disposition home or self-care (01) | DRG 267 ==
LOC: FCATH 07:33 → F2W 12:07
PROVIDERS: ADMIT Internal Medicine Cardiovascular Disease; ATTEND Internal Medicine Cardiovascular Disease
PROC: 02RF38Z Replacement of Aortic Valve with Zooplastic Tissue, Percutaneous Approach (ICD-10-PCS; principal; 2018-04-20)
DX: I35.0 Nonrheumatic aortic (valve) stenosis (principal); Z00.6 Encounter for examination for normal comparison and control in clinical research program; I25.10 Atherosclerotic heart disease of native coronary artery without angina pectoris; I10 Essential (primary) hypertension
CPT/HCPCS: C1760; C1769; C1894; J0360; J0690; J1170; J1200; J1644; J2704; J2720; J2930; J3010; Q9967

== ENCOUNTER → 2018-04-28 | Outpatient (CLI) | payer OTHER | LOC: BHFA 14:00 | PROVIDERS: ATTEND Internal Medicine Cardiovascular Disease | DX: Z95.2 Presence of prosthetic heart valve (principal) ==